=== PATIENT | male | born 2000 | race Caucasian/White ===

== ENCOUNTER 2021-11-16 23:44 | Emergency (ER) | payer OTHER ==
[~2021-11-16 23:44] MED LIST: ZOFRAN ODT 4 MG4 MG PO
[2021-11-17 00:47] LABS: HEMOGLOBIN 14.2 gm/dl (14.0-17.5); RED BLOOD COUNT 4.66 M/UL (4.20-5.50); WHITE BLOOD COUNT 7.2 K/UL (4.5-11.0)
[2021-11-17 00:52] LABS: BUN/CREATININE RATIO 12 (0-10)
[2021-11-17] MEDS ORDERED: LODINE CAP 300300 MG PO (02:32)
== END 2021-11-17 02:50 | disposition home or self-care (01) ==
LOC: ER1 23:44
PROVIDERS: Physician Assistant
DX: R59.0 Localized enlarged lymph nodes (principal)
CPT/HCPCS: 80048; 85025; 85652; 86140; 99283